=== PATIENT | male | born 1990 | race Caucasian/White ===

== ENCOUNTER 2018-12-06 21:20 | Emergency (ER) | payer OTHER ==
[~2018-12-06] VITALS: Ht 182.9 cm; Wt 177.7 kg
[~2018-12-06 21:20] MED LIST: HYDR-3612 PO; IBUP-1542 PO
[2018-12-06 22:00] VITALS: BP 158/106; PULSE 110; RESP 24; Ht 182.9 cm; Wt 177.7 kg
[2018-12-06] MEDS ORDERED: GABA100C14 PO (23:48)
--- NOTE | 2018-12-06 23:54 | ERD ---
ER Documentation Chief Complaint Chief Complaint left arm numbness since 1pm. denies cp/sob. + HURLEY HPI 28-year-old male presents for left hand numbness times 1 day. He does have a past history of prediabetes and hypertension and is currently not getting any treatment. Denies any recent trauma. He does not do an excessive amount of typing. The numbness described as pins and needles sensation. Denies fevers or chills. Denies nausea or vomiting. ROS All systems reviewed and are negative except as per history of present illness. Medications Home Meds Active Scripts Gabapentin* (Gabapentin*) 100 Mg Capsule, 100 MG PO TID PRN for numbness, #30 CAP Prov:VARGASRAAD 12/06/18 Ibuprofen* (Motrin*) 600 Mg Tab, 600 MG PO Q6, #20 TAB Prov:JOHN FARLEY PA-C 07/08/15 Reported Medications Hydrocodone Bit-Acetaminophen* ([place]*) 1 Tab Tab, 1 TAB PO Q4 08/06/12 Allergies Allergies: Coded Allergies: No Known Allergy (Unverified , 12/06/18) PMhx/Soc History of Surgery: Yes (ANKLE) Anesthesia Reaction: No Hx Neurological Disorder: No Hx Respiratory Disorders: No Hx Cardiac Disorders: No Hx Psychiatric Problems: No Hx Miscellaneous Medical Probl: No (htn ) Hx Alcohol Use: No Hx Substance Use: No Hx Tobacco Use: Yes (vapes) Smoking Status: Current every day smoker Physical Exam Vitals Vital Signs Date Temp Pulse Resp B/P (MAP) Pulse Ox O2 O2 Flow FiO2 Time Delivery Rate 12/06/18 98.3 110 24 158/106 98 22:00 (123) Physical Exam Const: No acute distress Resp: Clear to auscultation bilaterally Cardio: Regular rate and rhythm, no murmurs, cap refill was less than 2 seconds in all fingers of the left hand Abd: Soft, non tender, non distended. Normal bowel sounds Skin: No petechiae or rashes Back: No midline or flank tenderness Ext: Negative Tinel sign over the left hand, negative Phalen's and reverse Phalen's sign Neur: Awake and alert, bilateral upper extremity sensation intact, left hand s ensation intact Psych: Normal Mood and Affect Procedures/MDM Medical Decision Making: Differential diagnosis includes but not limited to neuropathy, carpal tunnel syndrome, myositis Patient appeared well on physical exam. Unclear the cause of the current left hand numbness at this point. Possibly due to neuropathy given the pins and needles sensation. Prescription(s): Patient given prescription for gabapentin. Advised that he need to follow with his primary care physician for possible referral to neurology for further testing if the left hand numbness continues. Patient advised to follow up with PCP in 1-2 days. Patient advised to return to ED for new or worsening symptoms. Patient stable on discharge from the ED. Disclaimer: Inadvertent spelling and grammatical errors are likely due to EHR/dictation software use and do not reflect on the overall quality of patient care. Also, please note that the electronic time recorded on this note does not necessarily reflect the actual time of the patient encounter. Departure Diagnosis: Primary Impression: Numbness Condition: Fair Patient Instructions: Paraesthesias Referrals: [facility] YOU HAVE RECEIVED A MEDICAL SCREENING EXAM AND THE RESULTS INDICATE THAT YOU DO NOT HAVE A CONDITION THAT REQUIRES URGENT TREATMENT IN THE EMERGENCY DEPARTMENT. FURTHER EVALUATION AND TREATMENT OF YOUR CONDITION CAN WAIT UNTIL YOU ARE SEEN IN YOUR DOCTORS OFFICE WITHIN THE NEXT 1-2 DAYS. IT IS YOUR RESPONSIBILITY TO MAKE AN APPOINTMENT FOR FOLOW-UP CARE. IF YOU HAVE A PRIMARY DOCTOR --you should call your primary doctor and schedule an appointment IF YOU DO NOT HAVE A PRIMARY DOCTOR YOU CAN CALL OUR PHYSICIAN REFERRAL HOTLINE AT IF YOU CAN NOT AFFORD TO SEE A PHYSICIAN YOU CAN CHOSE FROM THE FOLLOWING [facility] [address] [facility]. [facility] [address] [facility]. [facility] [address] [facility]. [facility] [address] [facility]. [facility] [address] [facility]. [facility]. [address] Additional Instructions: Call your primary care doctor TOMORROW for an appointment during the next 1-2 days.See the doctor sooner or return here if your condition worsens before your appointment time. RAAD VARGAS DO Dec 06, 2018 23:54
== END 2018-12-07 01:20 | disposition home or self-care (01) ==
LOC: FTE 21:20
DX: R20.0 Anesthesia of skin (principal); I10 Essential (primary) hypertension; F17.210 Nicotine dependence, cigarettes, uncomplicated
CPT/HCPCS: 99283